=== PATIENT | male | born 2000 | race Caucasian/White ===

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

== ENCOUNTER → 2022-06-06 14:47 | Outpatient (BNVA) | payer BC, SELFPAY | PROVIDERS: Family Provider Nurse Practitioner; PCP Nurse Practitioner Family; Visit Provider Nurse Practitioner Family | DX: J02.9 Acute pharyngitis, unspecified (principal) | CPT/HCPCS: 87880 ==

== ENCOUNTER → 2022-07-16 17:04 | Outpatient (BNVA) | payer BC, SELFPAY | PROVIDERS: Family Provider Nurse Practitioner; PCP Nurse Practitioner Family; Visit Provider Family Medicine | DX: J02.9 Acute pharyngitis, unspecified (principal) | CPT/HCPCS: 87071; 87880 ==

== ENCOUNTER → 2022-10-07 11:59 | Outpatient (BNVA) | payer BC, SELFPAY | PROVIDERS: Family Provider Nurse Practitioner; PCP Nurse Practitioner Family; Visit Provider Nurse Practitioner Family | DX: F41.9 Anxiety disorder, unspecified (principal) | CPT/HCPCS: 80053; 82306; 82607; 83735; 84443; 85025 ==

== ENCOUNTER → 2022-12-01 15:41 | Outpatient (BNVA) | payer BC, SELFPAY | PROVIDERS: Family Provider Nurse Practitioner; PCP Nurse Practitioner Family; Visit Provider Nurse Practitioner Family | DX: J02.9 Acute pharyngitis, unspecified (principal) | CPT/HCPCS: 87071; 87880 ==

== ENCOUNTER → 2023-05-12 14:59 | Outpatient (BNVA) | payer OTHER, SELFPAY | PROVIDERS: Family Provider Nurse Practitioner; PCP Nurse Practitioner Family; Visit Provider Nurse Practitioner Family | DX: M25.50 Pain in unspecified joint (principal) | CPT/HCPCS: 80053; 82306; 82607; 83735; 84443; 84550; 85025; 85651; 86038; 86140; 86431; 86618; 86666; 86757 ==

== ENCOUNTER → 2023-05-14 | Outpatient (BNVA) | payer OTHER, SELFPAY | PROVIDERS: Family Provider Nurse Practitioner; PCP Nurse Practitioner Family; Visit Provider Nurse Practitioner Family | DX: M25.50 Pain in unspecified joint (principal) | CPT/HCPCS: 82607 ==

== ENCOUNTER → 2023-05-26 11:50 | Outpatient (BNVA) | payer OTHER, SELFPAY | PROVIDERS: Family Provider Nurse Practitioner; PCP Nurse Practitioner Family; Visit Provider Nurse Practitioner Family | DX: R74.8 Abnormal levels of other serum enzymes (principal); M25.50 Pain in unspecified joint | CPT/HCPCS: 80076; 82607; 86705; 86706; 86709; 86803; 87340 ==

== ENCOUNTER 2023-06-16 08:31 | Outpatient (CLI) | payer OTHER, SELFPAY ==
--- NOTE | 2023-06-16 08:45 | US_ITS ---
WS: [id number] Complete ABDOMINAL ULTRASOUND HISTORY: R74.8 - Abnormal levels of other serum enzymes COMPARISON: None available. Liver: 13.0 cm in length. Normal size liver and echogenicity. No bile duct dilatation or mass. Portal Vein: Normal hepatopetal flow with monophasic waveform. Gallbladder: Normally distended gallbladder with no stones or wall thickening. CBD: 0.2 cm Pancreas: Normal size and echogenicity. Right kidney: 10.5 cm x 4.8 x 4.5 cm. Cortex: 1.5 cm. Normal size and echogenicity. No hydronephrosis or mass. Left kidney: 11.3 cm x 4.4 cm x 4.7 cm. Cortex: 1.5 cm. Normal size and echogenicity. No hydronephrosis or mass. Spleen: 11.3 cm in length. Normal. Aorta and IVC: Unremarkable abdominal aorta and IVC. Impression: Normal complete abdomen ultrasound.
== END 2023-06-16 08:32 | disposition home or self-care (01) ==
LOC: RAD 08:32
PROVIDERS: Family Provider Nurse Practitioner; PCP Nurse Practitioner Family; Visit Provider Nurse Practitioner Family
DX: R74.8 Abnormal levels of other serum enzymes (principal)
CPT/HCPCS: 76700

== ENCOUNTER → 2023-12-01 09:46 | Outpatient (BNVA) | payer OTHER, SELFPAY | PROVIDERS: Family Provider Nurse Practitioner; PCP Nurse Practitioner Family; Visit Provider Nurse Practitioner Family | DX: R53.83 Other fatigue (principal); E55.9 Vitamin D deficiency, unspecified; R10.84 Generalized abdominal pain; F41.9 Anxiety disorder, unspecified | CPT/HCPCS: 80053; 82306; 84443; 85025 ==